=== PATIENT | male | born 1990 | race American Indian/Alaskan Native ===

== ENCOUNTER 2020-09-05 03:46 | Emergency (ER) | payer SELFPAY ==
[2020-09-05 04:01] VITALS: BP 110/69
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
== END 2020-09-05 07:00 | disposition home or self-care (01) ==
LOC: ED 03:46
DX: S61.011A Laceration without foreign body of right thumb without damage to nail, initial encounter (principal); W45.8XXA Other foreign body or object entering through skin, initial encounter; Y93.89 Activity, other specified; Y92.89 Other specified places as the place of occurrence of the external cause; Y99.8 Other external cause status
CPT/HCPCS: 99282